=== PATIENT | male | born 1945 ===

== ENCOUNTER 2020-12-09 08:15 | Inpatient (IN) | payer OTHER ==
[~2020-12-09] VITALS: Ht 160 cm; Wt 108.9 kg
[2020-12-09] MEDS ORDERED: DIOVAN320 MG PO (10:57)
[2020-12-09] MEDS ORDERED: ATORVASTATIN CA40 MG PO (10:58)
[2020-12-09] MEDS ORDERED: ACTOS15 MG PO (10:58)
[2020-12-09] MEDS ORDERED: DOXAZOSIN MESYLA4 MG PO (10:58)
[2020-12-09] MEDS ORDERED: AMILODIPINE PO (10:59)
[2020-12-17] MEDS ORDERED: AMLODIPINE BESYL5 MG (08:19)
[2020-12-17] MEDS ORDERED: GLIMEPIRIDE2 M1 (08:20)
[2020-12-17] MEDS ORDERED: PANTOPRAZOLE SO40 MG (08:20)
[2020-12-18] MEDS ORDERED: OXYC1TAB9 PO (14:48)
[2020-12-18] MEDS ORDERED: BACTRIM DS TAB1 EACH PO (14:48)
[2020-12-18] MEDS ORDERED: XARELTO10 MG PO (14:48)
[2020-12-18] MEDS ORDERED: INTEGRA PLUS C1 EACH PO (14:48)
== END 2020-12-18 17:29 | DRG 470 ==
LOC: SURG 12-16 06:30 → O/R 12-16 06:30 → SURH 12-16 07:00 → SURG 12-16 10:48
PROVIDERS: ADMIT Orthopaedic Surgery Sports Medicine; ATTEND Orthopaedic Surgery Sports Medicine
PROC: 0SRD0J9 Replacement of Left Knee Joint with Synthetic Substitute, Cemented, Open Approach (ICD-10-PCS; principal; 2020-12-16 07:00)
DX: M17.12 Unilateral primary osteoarthritis, left knee (principal); I10 Essential (primary) hypertension